=== PATIENT | female | born 1930 | race African-American/Black ===

== ENCOUNTER 2016-06-20 04:49 | Inpatient (IN) | payer MEDICARE, MEDICAID ==
[~2016-06-20] VITALS: Ht 165.1 cm; Wt 64.9 kg
[2016-06-20] VITALS (7 sets, daily range): BP systolic 104–146; BP diastolic 54–84
[~2016-06-20 04:49] MED LIST: ASPI-1035 PO; CARV6.2548 PO; FAMO20TA8 PO; FURO40TA5 PO; HYDR-523 PO; LISI10TA PO; VITAMIN C; ZINC PO
[2016-06-20] MEDS ORDERED: ONDANSETRON HCL 4MG/2ML VIAL IV ONE (05:15)
[2016-06-20] MEDS ORDERED: FAMOTIDINE 20MG/2ML VIAL IV ONE (05:15)
[2016-06-20] MEDS ORDERED: KETOROLAC 15MG/ML VIAL IV ONE (05:15)
[2016-06-20] MEDS ORDERED: ONDANSETRON HCL 4MG/2ML VIAL IV STA (06:08)
[2016-06-20 06:13] LABS: INR 1.1; PROTHROMBIN TIME 11.7 sec
[2016-06-20] MEDS ORDERED: DIPHENHYDRAMINE 50MG/ML VIAL IV ONE (06:15)
[2016-06-20] MEDS ORDERED: MORPHINE SULFATE 2 MG/ML CPJ (NOT FOR IM USE) IV ONE (06:15)
[2016-06-20 06:19] LABS: HEMATOCRIT. 43.9 % (36.0-48.0); HEMOGLOBIN. 14.4 g/dL (12.0-16.0); MEAN CORPUSCULAR HEMOGLOBIN 30.1 pg (28.0-32.0); MEAN CORPUSCULAR HGB CONC 32.8 g/dL (31.0-37.0); MEAN PLATELET VOLUME 10.3 fl (7.4-10.4); PLATELET 394 x1000/uL (130-400); RED BLOOD CELL COUNT 4.77 mill/uL (4.2-5.4); RED CELL DISTRIBUTION WIDTH 14.3 % (11.6-14.6); WHITE BLOOD COUNT 17.2 x1000/uL (4.5-11.0)
[2016-06-20 06:21] LABS: DIFFERENTIAL COMMENT 1
[2016-06-20 06:28] LABS: ALANINE AMINOTRANSFERASE 22 IU/L (13-61); ALBUMIN 2.9 g/dL (3.4-5.0); ANION GAP 12; CALCIUM 8.9 mg/dL (8.5-10.1); CARBON DIOXIDE 29 mEq/L (21-32); CHLORIDE 104 mEq/L (98-107); INDEX HEMOLYSI 4 (1-3); INDEX ICTERIC 1 (1-4); INDEX LIPEMIC 1 (1-3); LIPASE 77 IU/L (73-393); UREA NITROGEN BLOOD 13 mg/dL (7-21); eGFR > 60 mL/min (>60)
[2016-06-20 07:00] LABS: PLATELET ESTIMATE NORMAL
[2016-06-20] MEDS ORDERED: ACETAMINOPHEN 325MG TABLET PO PRN (07:30)
[2016-06-20] MEDS: CLONIDINE 0.1MG TABLET PO PRN (10:11)
[2016-06-20 10:19] LABS: CLARITY URINE CLOUDY (CLEAR); COLOR URINE DARK YELLOW (YELLOW); GLUCOSE URINE NEGATIVE (NEGATIVE); KETONES URINE 3+ (NEGATIVE); LEUKOCYTE ESTERASE URINE TRACE (NEGATIVE); NITRITE URINE NEGATIVE (NEGATIVE); OCCULT BLOOD URINE TRACE (NEGATIVE); PH URINE 5.5 (4.5-8.0); PROTEIN URINE 2+ (NEGATIVE); SPECIFIC GRAVITY URINE 1.027 (1.005-1.030)
[2016-06-20 10:45] LABS: HYALINE CASTS URINE 0-5 /lpf; MUCUS URINE 3+ /lpf (< = 2+); SQUAMOUS EPITHELIAL CELL URINE 2+ /lpf (RARE/1+)
[2016-06-20 10:48] LABS: BACTERIA URINE TRACE
[2016-06-20] MEDS ORDERED: PIPERACILLIN/TAZ 3.375G PREMIX 50 ML IV SCH (12:18)
[2016-06-20 12:22] LABS: T4 FREE 1.49 ng/dL (0.76-1.46); THYROID STIMULATING HORMONE 2.5 mIU/mL (0.36-3.74)
[2016-06-20 12:23] LABS: INR 1.1; PROTHROMBIN TIME 11.6 sec
[2016-06-20] MEDS: DEXT 5%/0.45% NACL 1000ML 1,000 ML IV SCH ×2 (12:57→20:40)
[2016-06-20] MEDS ORDERED: METRONIDAZOLE 500 MG PREMIX 100 ML IV SCH (14:00)
[2016-06-20] MEDS: HYDRALAZINE HCL 50MG TABLET PO SCH ×2 (17:29→23:57)
[2016-06-20] MEDS: FERROUS SULFATE 325MG TABLET PO SCH (17:29)
[2016-06-20] MEDS: METRONIDAZOLE 500 MG PREMIX 100 ML IV SCH (17:29)
[2016-06-20] MEDS: TRAMADOL 50MG TABLET PO PRN (18:26)
[2016-06-20] MEDS ORDERED: GABAPENTIN 100MG CAPSULE PO NR (19:00)
[2016-06-20] MEDS: HYDROCODONE/ACETAMINOPHEN 5/325MG TABLET PO PRN (19:16)
[2016-06-20 20:31] LABS: HEMATOCRIT 44.7 % (36.0-48.0); HEMOGLOBIN 14.2 g/dL (12.0-16.0)
[2016-06-20] MEDS: IPRATROPIUM/ALBUTEROL 0.5-3(2.5)MG/3ML NEB INH SCH (21:00)
[2016-06-20] MEDS: PIPERACILLIN/TAZ 3.375G PREMIX 50 ML IV SCH (21:02)
[2016-06-20] MEDS: GABAPENTIN 100MG CAPSULE PO SCH (22:20)
[2016-06-21] VITALS (11 sets, daily range): BP systolic 98–163; BP diastolic 41–72
[2016-06-21 00:23] LABS: CREATINE KINASE MB FRACTION 3.4 ng/mL (0.5-3.6)
[2016-06-21 00:39] LABS: TROPONIN I 1.9 ng/mL (0.00-0.04)
[2016-06-21] MEDS: METRONIDAZOLE 500 MG PREMIX 100 ML IV SCH ×3 (01:09→18:00)
[2016-06-21] MEDS: IPRATROPIUM/ALBUTEROL 0.5-3(2.5)MG/3ML NEB INH SCH ×5 (01:15→20:53)
[2016-06-21] MEDS: PIPERACILLIN/TAZ 3.375G PREMIX 50 ML IV SCH ×2 (02:16→07:41)
[2016-06-21 02:56] LABS: GLUCOSE URINE NEGATIVE (NEGATIVE); KETONES URINE 2+ (NEGATIVE); LEUKOCYTE ESTERASE URINE NEGATIVE (NEGATIVE); NITRITE URINE NEGATIVE (NEGATIVE); OCCULT BLOOD URINE NEGATIVE (NEGATIVE); PH URINE 5.5 (4.5-8.0); PROTEIN URINE 1+ (NEGATIVE); SPECIFIC GRAVITY URINE 1.021 (1.005-1.030)
[2016-06-21 02:58] LABS: CLARITY URINE CLEAR (CLEAR); COLOR URINE YELLOW (YELLOW)
[2016-06-21 04:48] LABS: BASOPHILS % 0.8 % (0.0-2.0); EOSINOPHILS % 0.5 % (0.0-5.0); HEMATOCRIT. 40.4 % (36.0-48.0); LYMPHOCYTES % 12.8 % (20.0-50.0); MEAN CORPUSCULAR HEMOGLOBIN 30.4 pg (28.0-32.0); MEAN CORPUSCULAR HGB CONC 32.1 g/dL (31.0-37.0); MEAN CORPUSCULAR VOLUME 94.7 fL (81.0-99.0); MEAN PLATELET VOLUME 9.5 fl (7.4-10.4); MONOCYTES % 6.8 % (2.0-8.0); NEUTROPHILS % 79.1 % (40.0-76.0); PLATELET 278 x1000/uL (130-400); RED BLOOD CELL COUNT 4.27 mill/uL (4.2-5.4); RED CELL DISTRIBUTION WIDTH 13.6 % (11.6-14.6); WHITE BLOOD COUNT 12.3 x1000/uL (4.5-11.0)
[2016-06-21 05:37] LABS: ANION GAP 14; CALCIUM 8.5 mg/dL (8.5-10.1); CARBON DIOXIDE 28 mEq/L (21-32); CHLORIDE 102 mEq/L (98-107); CREATINE KINASE 81 IU/L (26-192); CREATINE KINASE MB FRACTION 3.4 ng/mL (0.5-3.6); INDEX HEMOLYSI 1 (1-3); INDEX ICTERIC 1 (1-4); INDEX LIPEMIC 1 (1-3); MAGNESIUM 1.6 mg/dL (1.8-2.4); PHOSPHORUS 2.5 mg/dL (2.5-4.9); UREA NITROGEN BLOOD 10 mg/dL (7-21); eGFR > 60 mL/min (>60)
[2016-06-21] MEDS: GABAPENTIN 100MG CAPSULE PO SCH ×3 (06:01→21:58)
[2016-06-21 06:31] LABS: SQUAMOUS EPITHELIAL CELL URINE FEW /lpf (RARE/1+)
[2016-06-21 06:32] LABS: BACTERIA URINE NONE SEEN; RBC URINE 0-2 /hpf (0-2); WBC URINE 0-2 /hpf (0-2)
[2016-06-21] MEDS: FERROUS SULFATE 325MG TABLET PO SCH ×3 (07:20→16:50)
[2016-06-21] MEDS: HYDRALAZINE HCL 50MG TABLET PO SCH ×3 (07:31→23:46)
[2016-06-21] MEDS: AMLODIPINE 5MG TABLET PO SCH (08:17)
[2016-06-21] MEDS ORDERED: ASPIRIN 81MG TABLET PO SCH (09:00)
[2016-06-21] MEDS ORDERED: MAGNESIUM 2 G PREMIX 50 ML IV NR (10:30)
[2016-06-21] MEDS ORDERED: POTASSIUM CHLORIDE INJ 40 MEQ in DEXT 5% WATER 250 ML IV NR (10:30)
[2016-06-21] MEDS ORDERED: NA PHOS,M-B/NA PHOS,DI-BA ENEMA 118ML PR ONE (11:00)
[2016-06-21] MEDS ORDERED: VANCOMYCIN 1250MG in DEXTROSE 5% WATER 250ML IV SCH (11:00)
[2016-06-21] MEDS: DEXT 5%/0.45% NACL 1000ML 1,000 ML IV SCH ×2 (11:03→23:47)
[2016-06-21 13:48] LABS: CREATINE KINASE MB FRACTION 2.2 ng/mL (0.5-3.6)
[2016-06-21] MEDS: CEFTRIAXONE 2 G in DEXTROSE 5% WATER 50 ML IV SCH (16:06)
[2016-06-21] MEDS: HYDROCODONE/ACETAMINOPHEN 5/325MG TABLET PO PRN (16:50)
[2016-06-21] MEDS: ONDANSETRON HCL 4MG/2ML VIAL IV PRN ×2 (17:10→23:46)
[2016-06-21] MEDS: CLONIDINE 0.1MG TABLET PO PRN (22:12)
[2016-06-21 23:05] LABS: HEMATOCRIT 45.7 % (36.0-48.0); HEMOGLOBIN 14.5 g/dL (12.0-16.0)
[2016-06-21] MEDS: TRAMADOL 50MG TABLET PO PRN (23:46)
[2016-06-22] VITALS (12 sets, daily range): BP systolic 90–129; BP diastolic 44–77
[2016-06-22] MEDS: IPRATROPIUM/ALBUTEROL 0.5-3(2.5)MG/3ML NEB INH SCH ×4 (01:29→20:50)
[2016-06-22] MEDS: METRONIDAZOLE 500 MG PREMIX 100 ML IV SCH ×3 (02:06→17:25)
[2016-06-22] MEDS: VANCOMYCIN 1 G PREMIX 200 ML IV SCH (05:58)
[2016-06-22] MEDS: GABAPENTIN 100MG CAPSULE PO SCH ×3 (05:59→22:25)
[2016-06-22 06:39] LABS: HEMATOCRIT. 37.4 % (36.0-48.0); HEMOGLOBIN. 12.1 g/dL (12.0-16.0); MEAN CORPUSCULAR HEMOGLOBIN 30.3 pg (28.0-32.0); MEAN CORPUSCULAR HGB CONC 32.2 g/dL (31.0-37.0); MEAN PLATELET VOLUME 9.8 fl (7.4-10.4); RED BLOOD CELL COUNT 3.98 mill/uL (4.2-5.4); RED CELL DISTRIBUTION WIDTH 14.1 % (11.6-14.6); WHITE BLOOD COUNT 12.1 x1000/uL (4.5-11.0)
[2016-06-22 07:10] LABS: DIFFERENTIAL COMMENT 1
[2016-06-22 07:21] LABS: ANION GAP 12; CALCIUM 8.2 mg/dL (8.5-10.1); CARBON DIOXIDE 24 mEq/L (21-32); CHLORIDE 104 mEq/L (98-107); INDEX HEMOLYSI 4 (1-3); INDEX ICTERIC 1 (1-4); INDEX LIPEMIC 1 (1-3); UREA NITROGEN BLOOD 10 mg/dL (7-21); eGFR > 60 mL/min (>60)
[2016-06-22] MEDS ORDERED: POTASSIUM CHLORIDE 20MEQ TABLET SR PO NR (08:00)
[2016-06-22] MEDS: FERROUS SULFATE 325MG TABLET PO SCH ×3 (08:00→17:54)
[2016-06-22] MEDS: HYDRALAZINE HCL 50MG TABLET PO SCH ×2 (08:00→16:00)
[2016-06-22] MEDS: AMLODIPINE 5MG TABLET PO SCH (08:01)
[2016-06-22] MEDS: CEFTRIAXONE 2 G in DEXTROSE 5% WATER 50 ML IV SCH (08:01)
[2016-06-22] MEDS ORDERED: CEFTRIAXONE 2 G PREMIX 50 ML IV SCH (09:00)
[2016-06-22 10:19] LABS: AMMONIA 22 uMol/L (<32); INDEX HEMOLYSI 1 (1-3)
[2016-06-22 10:41] LABS: T3 FREE 1.21 pg/ml (2.18-3.98); T4 FREE 1.37 ng/dL (0.76-1.46)
[2016-06-22 10:51] LABS: FOLIC ACID (FOLATE) SERUM 9.2 ng/mL (>5.38)
[2016-06-22] MEDS: SENNOSIDES/DOCUSATE SOD 8.6/50MG TABLET GT SCH (12:54)
[2016-06-22] MEDS: HYDROCODONE/ACETAMINOPHEN 5/325MG TABLET PO PRN (12:59)
[2016-06-22 14:49] LABS: PLATELET 255 x1000/uL (130-400)
[2016-06-22 16:36] LABS: HEMATOCRIT 35.4 % (36.0-48.0); HEMOGLOBIN 11.4 g/dL (12.0-16.0)
[2016-06-22 23:06] LABS: HEMATOCRIT 39.9 % (36.0-48.0); HEMOGLOBIN 12.8 g/dL (12.0-16.0)
[2016-06-23] VITALS (21 sets, daily range): BP systolic 91–128; BP diastolic 30–93
[2016-06-23] MEDS: VANCOMYCIN 1 G PREMIX 200 ML IV SCH ×2 (00:13→21:58)
[2016-06-23] MEDS: IPRATROPIUM/ALBUTEROL 0.5-3(2.5)MG/3ML NEB INH SCH ×4 (01:04→20:55)
[2016-06-23] MEDS: METRONIDAZOLE 500 MG PREMIX 100 ML IV SCH ×3 (03:06→17:22)
[2016-06-23] MEDS: GABAPENTIN 100MG CAPSULE PO SCH ×3 (05:13→21:57)
[2016-06-23] MEDS: HYDRALAZINE HCL 50MG TABLET PO SCH ×3 (08:57→16:00)
[2016-06-23] MEDS: SENNOSIDES/DOCUSATE SOD 8.6/50MG TABLET GT SCH (08:57)
[2016-06-23] MEDS: FERROUS SULFATE 325MG TABLET PO SCH ×3 (08:57→17:21)
[2016-06-23] MEDS: CEFTRIAXONE 2 G in DEXTROSE 5% WATER 50 ML IV SCH (08:57)
[2016-06-23] MEDS: AMLODIPINE 5MG TABLET PO SCH (08:58)
[2016-06-23] MEDS ORDERED: METOCLOPRAMIDE HCL 10MG/2ML VIAL IV NR (09:30)
[2016-06-23] MEDS: PANTOPRAZOLE SODIUM 40 MG/VIAL IV SCH (09:46)
[2016-06-23 10:02] LABS: HEMATOCRIT. 30.2 % (36.0-48.0); HEMOGLOBIN. 9.9 g/dL (12.0-16.0); MEAN CORPUSCULAR HEMOGLOBIN 30.2 pg (28.0-32.0); MEAN CORPUSCULAR HGB CONC 32.8 g/dL (31.0-37.0); MEAN CORPUSCULAR VOLUME 92.3 fL (81.0-99.0); MEAN PLATELET VOLUME 9.3 fl (7.4-10.4); PLATELET 220 x1000/uL (130-400); RED BLOOD CELL COUNT 3.27 mill/uL (4.2-5.4); RED CELL DISTRIBUTION WIDTH 13.7 % (11.6-14.6); WHITE BLOOD COUNT 10.4 x1000/uL (4.5-11.0)
[2016-06-23 10:18] LABS: DIFFERENTIAL COMMENT 1
[2016-06-23 10:30] LABS: MAGNESIUM 1.9 mg/dL (1.8-2.4); PHOSPHORUS 2.2 mg/dL (2.5-4.9)
[2016-06-23] MEDS: METOCLOPRAMIDE HCL 10MG/2ML VIAL IV SCH ×2 (13:43→17:21)
[2016-06-23] MEDS ORDERED: POTASSIUM CHLORIDE INJ 40 MEQ in DEXT 5% WATER 250 ML IV NR (15:00)
[2016-06-23 15:14] LABS: PLATELET ESTIMATE NORMAL
[2016-06-23] MEDS: ZINC SULFATE 220 MG ( 50 ) CAPSULE PO SCH (17:21)
[2016-06-23] MEDS: MULTIVITAMINS,THER W-MINERALS TABLET PO SCH (17:21)
[2016-06-23] MEDS: HYDROCODONE/ACETAMINOPHEN 5/325MG TABLET PO PRN (19:32)
[2016-06-23] MEDS: ASCORBIC ACID 250 MG TABLET PO SCH (21:57)
[2016-06-24] VITALS (11 sets, daily range): BP systolic 99–140; BP diastolic 36–76
[2016-06-24] MEDS: METOCLOPRAMIDE HCL 10MG/2ML VIAL IV SCH ×4 (00:06→18:07)
[2016-06-24] MEDS: IPRATROPIUM/ALBUTEROL 0.5-3(2.5)MG/3ML NEB INH SCH ×4 (00:41→21:12)
[2016-06-24] MEDS: METRONIDAZOLE 500 MG PREMIX 100 ML IV SCH ×3 (01:56→18:07)
[2016-06-24] MEDS: GABAPENTIN 100MG CAPSULE PO SCH ×3 (05:46→21:50)
[2016-06-24 06:15] LABS: BASOPHILS % 0.8 % (0.0-2.0); EOSINOPHILS % 7.1 % (0.0-5.0); HEMOGLOBIN. 11.1 g/dL (12.0-16.0); INR 1.1; LYMPHOCYTES % 9.8 % (20.0-50.0); MEAN CORPUSCULAR HEMOGLOBIN 30.4 pg (28.0-32.0); MEAN CORPUSCULAR HGB CONC 32.7 g/dL (31.0-37.0); MEAN PLATELET VOLUME 9.5 fl (7.4-10.4); MONOCYTES % 5.5 % (2.0-8.0); NEUTROPHILS % 76.8 % (40.0-76.0); PARTIAL THROMBOPLASTIN TIME 31.6 sec (24.0-34.0); PLATELET 279 x1000/uL (130-400); PROTHROMBIN TIME 11.5 sec; RED BLOOD CELL COUNT 3.65 mill/uL (4.2-5.4); RED CELL DISTRIBUTION WIDTH 14.2 % (11.6-14.6); WHITE BLOOD COUNT 11.9 x1000/uL (4.5-11.0)
[2016-06-24 06:52] LABS: CALCIUM 7.9 mg/dL (8.5-10.1)
[2016-06-24] MEDS: FERROUS SULFATE 325MG TABLET PO SCH ×3 (07:20→16:29)
[2016-06-24] MEDS: HYDRALAZINE HCL 50MG TABLET PO SCH ×3 (07:26→16:00)
[2016-06-24] MEDS: PANTOPRAZOLE SODIUM 40 MG/VIAL IV SCH (08:40)
[2016-06-24] MEDS: CEFTRIAXONE 2 G in DEXTROSE 5% WATER 50 ML IV SCH (08:41)
[2016-06-24] MEDS: MULTIVITAMINS,THER W-MINERALS TABLET PO SCH (09:00)
[2016-06-24] MEDS: SENNOSIDES/DOCUSATE SOD 8.6/50MG TABLET GT SCH (09:00)
[2016-06-24] MEDS: AMLODIPINE 5MG TABLET PO SCH (09:00)
[2016-06-24] MEDS: ZINC SULFATE 220 MG ( 50 ) CAPSULE PO SCH (09:00)
[2016-06-24] MEDS: ASCORBIC ACID 250 MG TABLET PO SCH ×2 (09:00→21:50)
[2016-06-24 09:06] LABS: HEMATOCRIT. 34.6 % (36.0-48.0); HEMOGLOBIN. 11.3 g/dL (12.0-16.0); MEAN CORPUSCULAR HEMOGLOBIN 30.6 pg (28.0-32.0); MEAN CORPUSCULAR HGB CONC 32.8 g/dL (31.0-37.0); MEAN CORPUSCULAR VOLUME 93.5 fL (81.0-99.0); MEAN PLATELET VOLUME 9.4 fl (7.4-10.4); PLATELET 239 x1000/uL (130-400); RED CELL DISTRIBUTION WIDTH 13.8 % (11.6-14.6); WHITE BLOOD COUNT 12.7 x1000/uL (4.5-11.0)
[2016-06-24 09:07] LABS: DIFFERENTIAL COMMENT 1
[2016-06-24 09:22] LABS: CALCIUM 7.8 mg/dL (8.5-10.1)
[2016-06-24 10:48] LABS: PLATELET ESTIMATE NORMAL
[2016-06-24] MEDS ORDERED: SIMETHICONE 40 MG/0.6 ML 30ML ONE ×2 (11:42→15:57)
[2016-06-24] MEDS ORDERED: SODIUM CHLORIDE 0.9% 10ML VIAL ONE (11:42)
[2016-06-24] MEDS ORDERED: FENTANYL CITRATE/PF 50MCG/ML 2ML VIAL ONE (15:57)
[2016-06-24] MEDS ORDERED: MIDAZOLAM HCL 5 MG/5 ML VIAL ONE (15:57)
[2016-06-24] MEDS ORDERED: MIDAZOLAM HCL 2 MG/2 ML VIAL IV PRN (16:12)
[2016-06-24] MEDS: VANCOMYCIN 1 G PREMIX 200 ML IV SCH (21:50)
[2016-06-25] VITALS (9 sets, daily range): BP systolic 92–127; BP diastolic 34–91
[2016-06-25] MEDS: HYDRALAZINE HCL 50MG TABLET PO SCH ×2 (00:11→08:00)
[2016-06-25] MEDS: METOCLOPRAMIDE HCL 10MG/2ML VIAL IV SCH ×3 (00:11→14:01)
[2016-06-25] MEDS: IPRATROPIUM/ALBUTEROL 0.5-3(2.5)MG/3ML NEB INH SCH ×3 (02:04→14:04)
[2016-06-25] MEDS: GABAPENTIN 100MG CAPSULE PO SCH ×2 (05:42→14:01)
[2016-06-25 07:12] LABS: HEMATOCRIT. 31.8 % (36.0-48.0); HEMOGLOBIN. 10.3 g/dL (12.0-16.0); MEAN CORPUSCULAR HEMOGLOBIN 30.2 pg (28.0-32.0); MEAN CORPUSCULAR HGB CONC 32.5 g/dL (31.0-37.0); MEAN CORPUSCULAR VOLUME 92.9 fL (81.0-99.0); MEAN PLATELET VOLUME 10.1 fl (7.4-10.4); PLATELET 253 x1000/uL (130-400); RED BLOOD CELL COUNT 3.43 mill/uL (4.2-5.4); RED CELL DISTRIBUTION WIDTH 14.3 % (11.6-14.6); WHITE BLOOD COUNT 11.7 x1000/uL (4.5-11.0)
[2016-06-25 07:22] LABS: DIFFERENTIAL COMMENT 1
[2016-06-25 07:27] LABS: CALCIUM 7.8 mg/dL (8.5-10.1)
[2016-06-25] MEDS: FERROUS SULFATE 325MG TABLET PO SCH ×2 (08:24→14:01)
[2016-06-25] MEDS: PANTOPRAZOLE SODIUM 40 MG/VIAL IV SCH (08:24)
[2016-06-25] MEDS: ASCORBIC ACID 250 MG TABLET PO SCH (08:26)
[2016-06-25] MEDS: ZINC SULFATE 220 MG ( 50 ) CAPSULE PO SCH (08:26)
[2016-06-25] MEDS: MULTIVITAMINS,THER W-MINERALS TABLET PO SCH (08:26)
[2016-06-25] MEDS: SENNOSIDES/DOCUSATE SOD 8.6/50MG TABLET GT SCH (08:26)
[2016-06-25] MEDS: CEFTRIAXONE 2 G in DEXTROSE 5% WATER 50 ML IV SCH (08:41)
[2016-06-25] MEDS: AMLODIPINE 5MG TABLET PO SCH (08:44)
[2016-06-25 09:32] LABS: PLATELET ESTIMATE NORMAL
[2016-06-25] MEDS ORDERED: CIPROFLOXACIN HCL 250MG TABLET PO SCH (21:00)
[2016-06-30 13:40] LABS: BRUCELLA AB IGG EIA Negative (Negative); BRUCELLA AB IGM EIA Negative (Negative)
== END 2016-06-25 14:45 | DRG 853 ==
LOC: ER 04:50 → 3WST 07:14
PROVIDERS: ADMIT Internal Medicine Nephrology; ATTEND Internal Medicine Nephrology
PROC: 02HV33Z Insertion of Infusion Device into Superior Vena Cava, Percutaneous Approach (ICD-10-PCS; 2016-06-20)
PROC: B5181ZA Fluoroscopy of Superior Vena Cava using Low Osmolar Contrast, Guidance (ICD-10-PCS; 2016-06-20)
PROC: B548ZZA Ultrasonography of Superior Vena Cava, Guidance (ICD-10-PCS; 2016-06-20)
PROC: 0DW64UZ Revision of Feeding Device in Stomach, Percutaneous Endoscopic Approach (ICD-10-PCS; principal; 2016-06-24 16:00)
DX: A41.9 Sepsis, unspecified organism (principal); G92 Toxic encephalopathy; I21.4 Non-ST elevation (NSTEMI) myocardial infarction; I33.0 Acute and subacute infective endocarditis; K92.2 Gastrointestinal hemorrhage, unspecified; E46 Unspecified protein-calorie malnutrition; I69.351 Hemiplegia and hemiparesis following cerebral infarction affecting right dominant side; N17.9 Acute kidney failure, unspecified; I38 Endocarditis, valve unspecified; I50.9 Heart failure, unspecified; I10 Essential (primary) hypertension; D64.9 Anemia, unspecified; F03.90 Unspecified dementia, unspecified severity, without behavioral disturbance, psychotic disturbance, mood disturbance, and anxiety; I25.10 Atherosclerotic heart disease of native coronary artery without angina pectoris; I27.2 Other secondary pulmonary hypertension; I45.9 Conduction disorder, unspecified; F41.9 Anxiety disorder, unspecified; I48.2 Chronic atrial fibrillation; I73.9 Peripheral vascular disease, unspecified; K29.60 Other gastritis without bleeding; K44.9 Diaphragmatic hernia without obstruction or gangrene; K57.90 Diverticulosis of intestine, part unspecified, without perforation or abscess without bleeding; R13.12 Dysphagia, oropharyngeal phase; Z68.23 Body mass index [BMI] 23.0-23.9, adult; I25.2 Old myocardial infarction; Z79.899 Other long term (current) drug therapy; Z87.74 Personal history of (corrected) congenital malformations of heart and circulatory system; Z89.611 Acquired absence of right leg above knee; Z90.710 Acquired absence of both cervix and uterus; Z93.1 Gastrostomy status; Z95.5 Presence of coronary angioplasty implant and graft; Z88.6 Allergy status to analgesic agent; Z98.890 Other specified postprocedural states; Z74.01 Bed confinement status
CPT/HCPCS: 36415; 36569; 70551; 71010; 74176; 76937; 77001; 80048; 80053; 80061; 80202; 81001; 82140; 82270; 82550; 82553; 82607; 82728; 82746; 82962; 83036; 83540; 83550; 83690; 83735; 83880; 84100; 84439; 84443; 84481; 84484; 85014; 85018; 85025; 85610; 85651; 85730; 86140; 86622; 86635; 86850; 86900; 87040; 87086; 93005; 93306; 93970; 94640; 94664; 96374; 96375; 96376; 99285; A4216; A6261; C1725; C1769; C1893; C9113; J0696; J1200; J1885; J2250; J2270; J2405; J2543; J2765; J3010; J3370; J3475; J3480; J3490; J7040; J7050; J7060; J7620